=== PATIENT | female | born 1990 | race Two or more races ===

== ENCOUNTER 2024-11-23 22:34 | Emergency (ER) | payer OTHER, SELFPAY ==
[2024-11-23 22:36] VITALS: BMI 44.2
[2024-11-23 22:46] VITALS: BMI 43.6
[2024-11-23 22:47] VITALS: BP 129/82; PULSE 88; RESP 18; TEMP 37.2; O2SAT 98
--- NOTE | 2024-11-23 23:34 | EDNOTE_ITS ---
ED General RME/HPI General Stated complaint: L LEG INJURY/PAIN, SWELLING, AND REDNES Time Seen by Provider: 11/23/24 22:56 Arrival date/time: 11/23/24 22:34 RME / HPI RME / HPI narrative: Very pleasant 34-year-old female with no significant past medical history presents to the ED with a complaint of left calf and lower leg pain, swelling, and redness. Patient states that last Monday they were in [place] and had their luggage on a cart the cart started to roll away and she lunged towards it causing an injury to her left calf muscle. States she thought she felt a pop. Since then she has been ambulating and thought the pain would go away. But yesterday she woke up to increasing swelling and now with redness after she attended a concert and walked around on the leg. She denies any fever or chills, nausea or vomiting. She consulted the Internet and was concerned about A torn Achilles tendon or a blood clot. Related Data Home Medications ?Medication ?Instructions ?Recorded ?Confirmed albuterol sulfate 90 mcg/actuation 2 puff inhalation Q 6H PRN 05/09/19 05/09/19 aerosol inhaler montelukast 10 mg tablet 10 mg PO QPM 05/09/19 Previous Rx's ?Medication ?Instructions ?Recorded clindamycin HCl 300 mg capsule 300 mg PO Q6H 7 days #2 8 caps 11/23/24 Allergies Allergy/AdvReac Type Severity Reaction Status Date / Time No Known Allergies Allergy Verified 11/23/24 22:42 Review of Systems Review of Systems Systems Reviewed: All systems reviewed, normal except as documented Past Medical History Past Medical History NEUROLOGIC: Negative Neurological Disorders or Seizures CARDIAC: Positive Cardiac Disorders and Hypertension ([facility] first 2011); Negative Congestive Heart Failure RESPIRATORY: Positive Asthma; Negative Chronic Obstructive Pulmonary Disease (COPD) GASTROINTESTINAL: Negative Gastrointestinal Disorders GENITOURINARY: Positive Genitourinary Disorders (uti's); Negative Renal Disease REPRODUCTIVE: Positive Pelvic Inflammatory Disease and Previous Pregnancies MUSCULOSKELETAL: Negative Musculoskeletal Disorders ENDOCRINE: Negative Endocrine Disorders, Diabetes Mellitus Type 1 or Diabetes Mellitus Type 2 HEMATOLOGIC: Positive Blood Disorders and Anemia PSYCHO/SOCIAL: Positive Anxiety OTHER HISTORY: Positive Chicken Pox; Negative Hospitalization, Autoimmune Disease, Down Syndrome, Developmental Delay, Shingles, Falls, Blood Transfusions, Blood Transfusion Reaction or Anesthesia Reactions Family History FAMILY HISTORY: Positive Family Respiratory Disorders (brother-asthma); Negative Family Psychiatric Problems, Family Cardiac Disorders, Family Gastrointestinal Problems, Family Cancer, Family Surgery (mom-brain surgery.) or Family Anesthesia Reaction Surgical History SURGICAL: Positive Section (2011) Social History SMOKING STATUS: Never smoker ED Exam Narrative Physical exam: A&O, afebrile and non-toxic appearing, very pleasant 34-year-old female, no acute distress. Lungs are clear, RRR, Abdomen is non-distended. Left calf with mild tenderness, significant swelling as well as erythema, warmth and tenderness noted to the left medial calf extending anteriorly to the left rocha area. Not circumferential at this time. Negative Garcia test. Good plantarflexion and dorsiflexion of the left foot. No tenderness to the ankle. No inversion or eversion pain. CMS intact distally. Moves all extremities well. Course Course Course Narrative: Dawood Ludwig was in to evaluate as well. He does not feel there is injury to the Achilles tendon or any evidence of DVT. He recommends oral antibiotics for the soft tissue infection, with elevation of the legs whenever possible. Patient was given clindamycin 600 mg p.o. x 1. She will be discharged home in stable condition with a prescription for clindamycin sent to her pharmacy. Quality Measures none Orders Category Date Time Status Clindamycin [Cleocin] Med 11/23/24 23:33 Once 600 mg PO X1 ONE Vital Signs Vital signs: Vital Signs Temperature 99.0 F 11/23/24 22:47 Pulse Rate 88 11/23/24 22:47 Respiratory Rate 18 11/23/24 22:47 Blood Pressure 129/82 11/23/24 22:47 Pulse Oximetry (%) 98 11/23/24 22:47 Oxygen Delivery Method Room Air 11/23/24 22:47 Discharge Plan Plan Patient Disposition: HOME (Self Care) Discharge Disposition comment: Stable Prescriptions/Referrals Prescriptions/Med Rec: New clindamycin HCl 300 mg capsule 300 mg PO Q6H 7 Days Qty: 28 0RF No Action montelukast 10 mg tablet 10 mg PO QPM albuterol sulfate 90 mcg/actuation HFA aerosol inhaler 2 puff INH Q6H PRN Referrals: No Primary/Family,Physician [Primary Care Provider] - In 1 week Problem List Clinical Impression: Cellulitis, Muscle strain of left lower extremity Patient/Caregiver Discharge Instructions Education Materials: ED Cellulitis, ED Muscle Strain, Extremity Additional Instructions: Take the antibiotics as prescribed and complete the course even though you may be feeling better. Elevate and apply warm compresses to the left lower leg. Follow-up with your primary care physician in 24 to 48 hours. Return to the ED for any new or worsening symptoms. Print Language: Maltese Stand Alone Forms: Trisha Award Info., Patient Portal Info Letter PA/LESVIA Supervising Physician PA/LESVIA Supervising Physician: Dr Mills [facility] Narrative MDM hospital course: Symptoms, exam and diagnostic studies are consistent with: Left lower leg cellulitis without evidence of DVT or Achilles tendon rupture/tear. She was given her first dose of clindamycin here in the ED prior to discharge. Patient was discharged home in stable condition with a prescription for clindamycin 300 mg p.o. 4 times daily. Patient/family advised to follow-up with their PCP in 24-48 hours. Encouraged to return to the ED for any new or worsening symptoms. Medication Administration(s) Medication Administration History Clindamycin HCl (Clindamycin 150 Mg Capsule) 600 mg PO X1 ONE Stop: 11/23/24 23:34
[2024-11-24] MEDS: CLINDAMYCIN 150 MG CAPSULE 600 MG PO (00:09)
== END 2024-11-24 00:27 | disposition home or self-care (01) ==
PROVIDERS: Emergency Provider Emergency Medicine
DX: S86.912A Strain of unspecified muscle(s) and tendon(s) at lower leg level, left leg, initial encounter (principal); L03.116 Cellulitis of left lower limb; X58.XXXA Exposure to other specified factors, initial encounter
CPT/HCPCS: 99282; A9270

== ENCOUNTER 2025-02-01 08:50 | Emergency (ER) | payer OTHER, SELFPAY ==
[2025-02-01 08:59] VITALS: BP 127/72; PULSE 71; RESP 18; TEMP 37.1; O2SAT 99; BMI 44.6
--- NOTE | 2025-02-01 09:04 | PD.EDADULT ---
ED General RME/HPI General Chief complaint: Headache Stated complaint: Migraine X 3 days behind right eye Time Seen by Provider: 02/01/25 09:04 Arrival date/time: 02/01/25 08:50 RME / HPI RME / HPI narrative: Sharona is a 34 y/o female with PMHx of reactive airway disease who comes in for an evaluation of worsening right sided headache, onset 3 days ago, rated 7 out of 10 for pain, did not help with [id number] pain medicine including Tylenol and ibuprofen with no other associated symptoms. Patient denies a history of migraines, however she started to notice having these pains recently and this is all new to her. 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 She says her fluid intake has been good, however she has been on a new diet in the past 35 days, however there is no significant carb restrictions and she has been more liberal with her diet the past 2 days. She denies any nausea, vomiting, numbness, tingling and when asked upon if the pain improves with no lights in the room she says she has not noticed. She denies any recent infections or recent travel. She does not have a neurologist. She does have family history significant for brain aneurysm with her mom at the age of 40. She denies any kidney or genetic kidney history in her family. She says she is currently on her period and she was having some issues with her and she had seen her NURSE MANAGER within the past year, however things have improved and she describes her period as heavy lasts about 7 days and have associated cramps and heavy bleeding. He does not have a neurologist. She is a social drinker, has not drink in 3 weeks, does not use nicotine products, has not smoked THC in about 3 months, and does not use any other oral or IV drugs. She says she drinks about 1 double or triple shot espresso a day, however did not have 1 in the past 2 days however denies any history of caffeine withdrawal headaches. Related Data Home Medications ?Medication ?Instructions ?Recorded ?Confirmed albuterol sulfate 90 mcg/actuation 2 puff inhalation Q6H PRN 05/09/19 05/09/19 aerosol inhaler montelukast 10 mg tablet 10 mg PO QPM 05/09/19 05/09/19 Allergies Allergy/AdvReac Type Severity Reaction Status Date / Time No Known Allergies Allergy Verified 02/01/25 08:55 Review of Systems Review of Systems Narrative Review of Systems: 12 point ROS reviewed and is otherwise negative unless stated directly in the HPI ED Exam Narrative Physical exam: General: AAOx3, NAD, morbidly obese female HEENT: Moist mucous membranes, conjunctiva clear, EOMI, PERRLA, L eye appears to be more medially placed than R at baseline Cardiovascular: S1, S2, radial pulses +2 bilat, RRR Pulmonary: CTAB bilat no cough, no wheezing GI: No tenderness to light or deep palpitation, no guarding, rigidity, rebound tenderness or distension Extremities: No presence of trace or pitting edema in lower extremities bilaterally, dorsalis pedis pulses +2 bilaterally Neuro: AAOx3, no focal motor or sensory deficits in the UE or LE bilat, gait normal, heel to rocha wnl, no pain with eye movements or accommodation, gait wnl Psych: Good judgement, thought and behavior. Cooperative Course Quality Measures none Orders Category Date Time Status CT head/brain wo con Stat Exams 02/01/25 09:28 Taken CBC Stat Lab 02/01/25 09:55 Completed CMP [Comprehensive Metabolic Panel] Stat Lab 02/01/25 09:55 Completed HCG,Qualitative Serum Stat Lab 02/01/25 09:55 Completed Mag [Magnesium] Stat Lab 02/01/25 09:55 Completed Phosphorous Stat Lab 02/01/25 09:55 Completed Urinalysis, C/S if Indicated Stat Lab 02/01/25 10:45 Completed DiphenhydrAMINE [Benadryl] Med 02/01/25 09:28 Discontinued 25 mg PO X1 ONE Metoclopramide [Reglan] Med 02/01/25 09:28 Discontinued 10 mg PO X1 ONE Vital Signs Vital signs: Vital Signs Temperature 98.7 F 02/01/25 08:59 Pulse Rate 71 02/01/25 08:59 Respiratory Rate 18 02/01/25 08:59 Blood Pressure 127/72 02/01/25 08:59 Pulse Oximetry (%) 99 02/01/25 08:59 Oxygen Delivery Method Room Air 02/01/25 08:59 Discharge Plan Plan Patient Disposition: HOME (Self Care) Patient condition on transfer: Stable Prescriptions/Referrals Prescriptions/Med Rec: No Action montelukast 10 mg tablet 10 mg PO QPM albuterol sulfate 90 mcg/actuation HFA aerosol inhaler 2 puff INH Q6H PRN Referrals: Fidencio Arnold MD [Primary Care Provider, Family Practice] - In 1 week Problem List Clinical Impression: Sinusitis, acute ethmoidal Patient/Caregiver Discharge Instructions Additional Instructions: Discharge instructions Follow-up with your PCP within 1 week Speak with your PCP in regards for your sinusitis. Take Flonase and Zyrtec/Claritin over the counter as needed Follow up with your PCP if your symptoms persist. Return to ED if your symptoms worsen or return Print Language: Samoan Stand Alone Forms: Trisha Award Info., Patient Portal Info Letter MDM Narrative MDM hospital course (for use when minimal MDM required): 0935: Will order CT head based off presentation and family history. Will order basic labs, urine hCG, give Reglan and Benadryl for pain. 1256: Head CT shows no acute bleed, however shows right ethmoid sinusitis. Will recommend patient to take second-generation antihistamines [id number] in addition to Flonase as well. Pt to follow up with PCP and to consider abx tx if symptoms continue to persist. Pt is medically cleared for discharge. Medication Administration(s) Medication Administration History Discontinued Medications Diphenhydramine HCl (Diphenhydramine 25 Mg Capsule) 25 mg PO X1 ONE Stop: 02/01/25 09:29 Last Admin: 02/01/25 09:39 Dose: 25 mg Documented By: SONAL Metoclopramide HCl (Metoclopramide 5 Mg Tablet) 10 mg PO X1 ONE Stop: 02/01/25 09:29 Last Admin: 02/01/25 09:40 Dose: 10 mg Documented By: SONAL Diagnosis Diagnoses ruled out and/or further discussions: Sinusitis, Migraine, tension headache, dehydration, cluster headache, intracranial bleed
--- NOTE | 2025-02-01 09:28 | XR_ITS ---
Examination: CT brain head without contrast. 2-D sagittal coronal reconstructions Date and time of exam: February 01, 2025, 10:00 a.m. INDICATIONS: Headache behind the right eye CTDI: vol (mGy): 52.3 DLP: (mGycm): 1021 Technique: Multiple CT axial sections of the brain have been obtained, 5 mm slice thickness. Contrast has not been administered. 2-D sagittal, coronal reconstructions have been obtained Low dose protocols were performed. One or more of the following dose reduction techniques were used; automated exposure control, adjustment of the mA and/or KV according to patient size, use of iterative reconstruction technique. Findings: No significant ventricular enlargement. Intra-axial or extra-axial hemorrhage density is not seen. No mass effect or midline shift Basal cisterns are not remarkable. Fourth ventricle is midline. Cranial vault intact. Impression: Negative for acute hemorrhage, mass effect or midline shift Chronic right ethmoid sinusitis
[2025-02-01] MEDS: METOCLOPRAMIDE 5 MG TABLET 10 MG PO (09:40)
[2025-02-01 10:04] LABS: Basophils # (Auto) 0.0 Thou/mm3 (0.0-0.2); Basophils % (Auto) 1 % (0-2.5); Eosinophils # (Auto) 0.1 Thou/mm3 (0.0-0.5); Eosinophils % (Auto) 2 % (0-10); Hematocrit 33.3 % (36.0-46.0); Hemoglobin 10.4 g/dL (12.0-16.0); Immature Granulocytes Auto 0.01 Thou/mm3 (0.00-0.00); Lymphocytes # (Auto) 1.8 Thou/mm3 (1.0-4.8); Lymphocytes % (Auto) 26 % (10-50); Mean Corpuscular HGB Conc 31.2 g/dl (31.0-37.0); Mean Corpuscular Hemoglobin 23.2 pg (25.0-35.0); Mean Corpuscular Volume 74 fL (80-100); Monocytes # (Auto) 0.7 Thou/mm3 (0.0-0.8); Monocytes % (Auto) 10 % (0-12); Neutrophils # (Auto) 4.1 Thou/mm3 (1.8-7.7); Neutrophils % (Auto) 61 % (37-80); Nucleated Red Blood Cell # 0.00 Thou/mm3 (0.00-0.00); Nucleated Red Blood Cell % 0 /100 WBC (0); Platelet Count 347 Thou/mm3 (140-440); RDW Standard Deviation 48.7 fL (36.4-46.3); Red Blood Count 4.48 Miln/mm3 (4.00-5.20); White Blood Count 6.8 Thou/mm3 (3.6-11.0)
[2025-02-01 10:33] LABS: Albumin, Serum 4.6 gm/dL (3.5-5.0); Albumin/Globulin Ratio 1.8 (1.2-2.2); Alkaline Phosphatase 65 U/L (46-116); Anion Gap 8 (7-16); Aspartate Amino Transferase 13 U/L (0-34); BUN/Creatinine Ratio 10 Ratio (12-20); Bilirubin,Total 0.4 mg/dL (0.3-1.2); Blood Urea Nitrogen 9 mg/dL (9-23); Calcium 8.9 mg/dL (8.3-10.6); Calcium (Corrected) 8.9 mg/dL (8.5-10.1); Carbon Dioxide 26.0 mMol/L (20.0-31.0); Chloride 107 mMol/L (98-107); Creatinine (Component) 0.9 mg/dL (0.6-1.3); Estimated Creatinine Clearance 109.3 mL/min (>60); Globulin 2.6 gm/dL (2.3-3.5); Glucose 79 mg/dL (74-106); Magnesium 2.0 mg/dL (1.6-2.6); Osmolality,Calculated 278 (275-295); Phosphorous 2.6 mg/dL (2.4-5.1); Potassium 4.8 mMol/L (3.4-5.1); Sodium 141 mMol/L (136-145); Total Protein 7.2 gm/dL (5.7-8.2); eGFR > 60 See Note
[2025-02-01 10:51] LABS: HCG,Qualitative Serum Negative
[2025-02-01 11:00] LABS: Collection Type, Urine Clean Catch; Squamous Epithelial Cell,Urine 0 /hpf (0-5)
[2025-02-01 11:02] LABS: Alanine Aminotransferase 11 U/L (10-49)
[2025-02-01 11:19] LABS: Bilirubin,Urine Negative (Negative); Blood,Urine 3+ (Negative); Clarity,Urine Clear (Clear/Hazy); Color,Urine Lt-Yellow (Lt Yel-Yel); Culture Indicated,Urine Not Indicated; Glucose, Urine Negative (Negative); Ketones,Urine Negative (Negative); Leukocyte Esterase,Urine Negative (Negative); Nitrite,Urine Negative (Negative); PH,Urine 6.5 (5.0-7.0); Protein,Urine Negative (Neg - Trace); RBC,Urine 646 /hpf (0-3); Specific Gravity,Urine 1.022 (1.001-1.035); Urobilinogen,Urine Negative mg/dL (0.0-1.0); WBC,Urine 3 /hpf (0-5)
== END 2025-02-01 13:35 | disposition home or self-care (01) ==
PROVIDERS: PCP Family Medicine
DX: J01.20 Acute ethmoidal sinusitis, unspecified (principal)
CPT/HCPCS: 36415; 70450; 80053; 81001; 83735; 84100; 84703; 85025; 99283; A9270